=== PATIENT | female | born 1975 | race Caucasian/White ===

== ENCOUNTER → 2021-03-21 | Outpatient (CLI) | payer BC ==
[2021-03-21 14:55] LABS: BASO # 0.04 K/mm3 (0.02-0.10); EOS # 0.29 K/mm3 (0.04-0.40); EOS % 5.1 % (1.0-5.0); HEMATOCRIT 41.4 % (37.0-47.0); LYMPH# 1.81 K/mm3 (1.50-4.00); MEAN CELL VOLUME 92 fl (78-100); MEAN CORPUSCULAR HEMOGLOBIN 31 pg (27-31); MEAN CORPUSCULAR HGB CONC 34 g/dL (33-37); MEAN PLATELET VOLUME 9.9 fl (7.4-10.4); MONO # 0.38 K/mm3 (0.20-0.80); PLATELET COUNT 290 K/mm3 (130-400); RED BLOOD COUNT 4.49 M/mm3 (4.10-5.30); RED CELL DISTRIBUTION WIDTH 12.7 % (11.5-14.5); WHITE BLOOD COUNT 5.7 K/mm3 (4.8-10.8)
[2021-03-21 15:11] LABS: ALBUMIN 3.8 g/dL (3.5-5.0); POTASSIUM 3.8 mmol/L (3.5-5.1)
[2021-03-21 15:12] LABS: CALCIUM 9.2 mg/dL (8.3-10.5)
[2021-03-21 15:13] LABS: TOTAL PROTEIN 6.9 g/dL (6.4-8.3)
[2021-03-21 15:15] LABS: TOTAL BILIRUBIN 0.3 mg/dL (0.2-1.2)
== END ==
LOC: LAB 14:36
PROVIDERS: Family Medicine
DX: Z00.00 Encounter for general adult medical examination without abnormal findings (principal); E55.9 Vitamin D deficiency, unspecified; E03.9 Hypothyroidism, unspecified; E78.5 Hyperlipidemia, unspecified

== ENCOUNTER → 2021-07-07 | Outpatient (CLI) | payer BC | LOC: RAD 16:26 | DX: M77.32 Calcaneal spur, left foot (principal); M77.31 Calcaneal spur, right foot ==

== ENCOUNTER → 2021-07-22 | Outpatient (CLI) | payer BC | LOC: LAB 13:08 | DX: E55.9 Vitamin D deficiency, unspecified (principal) ==

== ENCOUNTER → 2021-08-25 | Outpatient (CLI) | payer BC | LOC: RAD 14:00 | DX: R60.0 Localized edema (principal); M25.571 Pain in right ankle and joints of right foot ==

== ENCOUNTER → 2023-12-03 | Outpatient (CLI) | payer BC ==
[~2023-12-03] MED LIST: PHENTERMINE15 MG PO
[2023-12-03 13:20] LABS: BASO # 0.03 K/mm3 (0.02-0.10); EOS # 0.25 K/mm3 (0.04-0.40); HEMATOCRIT 39.7 % (37.0-47.0); HEMOGLOBIN 13.5 g/dL (12.5-16.0); LYMPH# 1.68 K/mm3 (1.50-4.00); MEAN CELL VOLUME 89 fl (78-100); MEAN CORPUSCULAR HEMOGLOBIN 30 pg (27-31); MEAN CORPUSCULAR HGB CONC 34 g/dL (33-37); MEAN PLATELET VOLUME 9.9 fl (7.4-10.4); MONO # 0.37 K/mm3 (0.20-0.80); NEU # 2.65 K/mm3 (1.40-6.50); PLATELET COUNT 368 K/mm3 (130-400); RED BLOOD COUNT 4.44 M/mm3 (4.10-5.30); RED CELL DISTRIBUTION WIDTH 12.5 % (11.5-14.5)
[2023-12-03 13:24] LABS: ALBUMIN 4.2 g/dL (3.5-5.0)
[2023-12-03 13:25] LABS: CALCIUM 9.7 mg/dL (8.3-10.5)
[2023-12-03 13:27] LABS: TOTAL PROTEIN 6.8 g/dL (6.4-8.3)
[2023-12-03 13:29] LABS: TOTAL BILIRUBIN 0.5 mg/dL (0.2-1.2)
== END ==
LOC: LAB 12:53
PROVIDERS: Family Medicine
DX: I10 Essential (primary) hypertension (principal); E03.9 Hypothyroidism, unspecified; E78.5 Hyperlipidemia, unspecified; E55.9 Vitamin D deficiency, unspecified; R73.9 Hyperglycemia, unspecified

== ENCOUNTER → 2024-03-03 | Outpatient (CLI) | payer OTHER | LOC: RAD 07:01 | DX: N92.1 Excessive and frequent menstruation with irregular cycle (principal) ==

== ENCOUNTER → 2024-06-21 | Outpatient (REF) | payer OTHER | LOC: LAB 16:03 | DX: R05.9 Cough, unspecified (principal) ==